=== PATIENT | female | born 1935 | race Caucasian/White ===

== ENCOUNTER 2024-05-18 16:06 | Inpatient (IN) | payer MEDICARE, SELFPAY ==
--- NOTE | ~2024-05-18 | CT_ITS ---
CT cervical spine wo con Ordering provider: Bing Rhodes History: . fall . Comparison: None. Technique: CT of the cervical spine was performed without contrast. Sagittal and coronal reformatted images were also obtained and reviewed. Automated exposure control and iterative reconstruction anson hnique were employed. The dose-length product was 106.13 mGy-cm. FINDINGS: VERTEBRAE: No subluxation or acute fracture. The occipital condyles are intact. DISC SPACES: Narrowing of the disc C6-C7. Multilevel facet joint disease. Multilevel uncovertebral maricel int osteoarthritic changes. PARASPINOUS SOFT TISSUES: Normal. IMPRESSION: No acute osseous abnormality cervical spine. Reviewed, dictated and finalized at location A.
--- NOTE | ~2024-05-18 | XR_ITS ---
SINGLE AP VIEW PELVIS Ordering provider: Bing Rhodes History: . fall . Comparison: None. FINDINGS: BONES: No acute fracture or dislocation. Right subtrochanteric fracture fixation by julian and screws. Formation seen in the area of the right femoral neck HIP JOINT SPACES: Normal. SACROILIAC JOINT SPACES/LUMBAR SPINE: The sacroiliac joint spaces are normal. Mild degenerative anderson es of the visualized lower lumbar spine. PUBIC SYMPHYSIS: Normal. SOFT TISSUES: Normal. IMPRESSION: No acute osseous abnormality pelvis. Fixation of the right femoral neck and upper femur. Reviewed, dictated and finalized at location A. IMPRESSION: No acute osseous abnormality pelvis. Fixation of the right femoral neck and upp er femur.
--- NOTE | ~2024-05-18 | CT_ITS ---
Noncontrast CT scan of the thoracolumbar spine CLINICAL HISTORY: Pain, status post fall TECHNIQUE: Axial noncontrast imaging of the thoracolumbar spine was performed. Sagittal and coronal r eformatted images were constructed. Dose reduction technique was used on this scan by utilizing autom ated exposure control and iterative reconstruction technique. The dose-length product (DLP) was 498.2 6 mGy-cm. FINDINGS: There is no fracture or subluxation of thoracic or lumbar spine pharyngeal bodies maintain normal height and alignment. There are scattered mild to moderate degenerative disc changes in the th oracic and lumbar spine, with moderate degenerative disc narrowing most notably at L2-L3 in the lumba r spine and T7-T8 in the thoracic spine. No significant disc bulge or herniation seen at any thoracic level. No thoracic spinal canal stenosis or cord compression. Thoracic neural foramina appear well preserved. At L1-L2, there is mild disc bulge and mild facet arthropathy. No central canal stenosis. There is mo derate right neural foraminal narrowing and minimal left neural foraminal narrowing. At L2-L3, there is uwdj-nh-pbjwoknr disc bulge with moderate facet arthropathy. There is moderate to advanced central canal stenosis/thecal sac compression. There is severe bilateral neural foraminal na rrowing, right worse than left. At L3-L4, there is disc bulge and facet arthropathy, with moderate to severe spinal canal stenosis/th ecal sac compression. There is severe bilateral neural foraminal compromise. At L4-L5, there is disc bulge and severe facet arthropathy, severe spinal canal stenosis/thecal sac c ompression. There is severe bilateral neural foraminal compromise. At L5-S1, there is minimal disc bulge. No definite canal stenosis. There is moderate to advanced righ t neural foraminal narrowing, and moderate left neural foraminal narrowing. Paravertebral soft tissues are unremarkable. Impression: No acute abnormality. 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 Reviewed, dictated and finalized at [facility]. Impression: No acute abnormality. 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
--- NOTE | ~2024-05-18 | CT_ITS ---
CT brain wo con Ordering provider: Bing Rhodes History: 88 years Female with . AMS . Comparison: None. Technique: CT of the head without contrast. Radiation reduction technique utilized The dose-length product was 681 mGy-cm. FINDINGS: BRAIN PARENCHYMA AND CSF SPACES: Mild leukoaraiosis and diffuse cortical atrophy. Mild atheromatous d isease. No midline shift, mass effect or hemorrhage. The brain parenchyma and CSF spaces are otherwi se normal. VISUALIZED PARANASAL SINUSES: Well aerated. MASTOIDS: Well aerated. BONES: The bones appear intact. SOFT TISSUES: Visualized nasopharynx is normal. Superficial soft tissues are normal. IMPRESSION: No acute intracranial findings. Reviewed, dictated and finalized at location A.
--- NOTE | ~2024-05-18 | MR_ITS ---
EXAMINATION: MR brain/brain stem wo/w con DATE: 05/19/2024 09:48 INDICATION: Altered mental status. TECHNIQUE: Magnetic resonance imaging (MRI) of the brain and brainstem was performed without and with 8 mL MultiHance intravenous contrast. COMPARISON: Head CT 05/18/2024 FINDINGS: There are scattered areas of nonspecific increased T2-weighted signal intensity in the cere bral white matter, which is within normal limits for the patient's age. There is no intracranial hemo rrhage, acute infarction, or abnormal intracranial mass lesion. The ventricles are normal in size. Th e mastoid air cells are normal. There are likely changes of ocular lens replacement surgeries. There is mild mucosal thickening in the ethmoid sinuses. IMPRESSION: 1. Normal aging brain. Reviewed, dictated and finalized at location A. IMPRESSION: 1. Normal aging brain.
--- NOTE | ~2024-05-18 | XR_ITS ---
XR chest 2V Ordering provider: Bing Rhodes History: 88 years Female with . fall . Comparison: None. FINDINGS: MEDIASTINUM: The cardiac silhouette is not enlarged. LUNGS: No infiltrates, effusions or pneumothorax. Emphysematous changes of the lungs. OTHER: No free air under the diaphragm. IMPRESSION: No acute cardiopulmonary pathology. Reviewed, dictated and finalized at location A.
[2024-05-18 16:08] VITALS: BP 125/51; PULSE 97; RESP 16; TEMP 37; O2SAT 97
--- NOTE | 2024-05-18 17:56 | ED.AMS ---
HPI - Altered Mental Status General Chief Complaint: Altered Mental Status <Bing Rhodes PA-C - Last Filed: 05/21/24 17:27> Stated Complaint: altered mental status <Bing Rhodes PA-C - Last Filed: 05/21/24 17:27> Time Seen by Provider: 05/18/24 17:56 <iBng Rhodes PA-C - Last Filed: 05/21/24 17:27> Focused HPI: This is a 88 year old female that presents to the ER for altered mental status. Family member brought her in out of concern as she was saying she thought there was water all over the floor and red coming out of the ceiling. She currently believes she is here to get glasses. Does not think she is confused. Has no current complaints. Family believes she may have fallen a couple days ago. Family reports she is normally very sharp . GENERAL: Elderly, well-nourished, and in no acute distress. HEAD: Normocephalic, atraumatic. CHEST: Clear to auscultation. ?No respiratory distress. HEART: Regular rate and rhythm.? NEURO: ?Alert and oriented x1. Patient screened in triage and initial orders placed.? ?Additional care and disposition to be based upon?diagnostic testing and treatment. <Bing Rhodes PA-C - Last Filed: 05/21/24 17:27> History of Present Illness HPI narrative: patient is a 88-year-old female who presents emergency department with chief complaint of altered mental status. Family noted that for the last several days she has been more more confused reports she is listing to the right and has had several falls recently patient has been confused seeing things and reports that she is not acting her usual self. The patient did have a hip fracture several months ago that was repaired and is a fairly recent resident to the facility <Vick Castellano MD - Last Filed: 05/19/24 02:42> Related Data Home Medications: Home Medications Medication Instructions Recorded Confirmed Adults Multivitamin 1 tab-cap PO DAILY 05/19/24 05/19/24 coenzyme Q10 100 mg capsule 100 mg PO DAILY 05/19/24 05/19/24 guar gum 1 packet PO DAILY PRN costipation 05/19/24 05/19/24 metformin 500 mg tablet 500 mg PO BID 05/19/24 05/19/24 raloxifene 60 mg tablet (Evista) 60 mg PO DAILY 05/19/24 05/19/24 sodium chloride 1,000 mg soluble 1,000 mg PO DAILY 05/19/24 05/19/24 tablet ferrous sulfate 325 mg (65 mg 325 mg PO DAILY 05/20/24 05/20/24 iron) tablet (Iron (ferrous sulfate)) <Bing Rhodes PA-C - Last Filed: 05/21/24 17:27> Allergies/Adverse Reactions: Allergies Allergy/AdvReac Type Severity Reaction Status Date / Time codeine Allergy Unknown Unknown Verified 05/18/24 16:17 Penicillins Allergy Unknown Unknown Verified 05/18/24 16:17 Sulfa (Sulfonamide Allergy Unknown Unknown Verified 05/18/24 16:17 Antibiotics) <Bing Rhodes PA-C - Last Filed: 05/21/24 17:27> Review of Systems Review of Systems: A 10 system review of systems was completed on the patient and is negative except for what is stated in the HPI. Nursing and ancillary documentation was reviewed. <Vick Castellano MD - Last Filed: 05/19/24 02:42> [facility] Past Medical History Medical History: Medical History (Updated 05/21/24 @ 17:27 by Bing Rhodes PA-C) Frequent urination Hyperlipidemia Hyponatremia Neurogenic bladder Pain Type 2 diabetes mellitus without complications <Bing Rhodes PA-C - Last Filed: 05/21/24 17:27> Family History Family History: Family History Father Malignant neoplasm of prostate Mother Family history of malignant neoplasm of urinary bladder Other Diabetes mellitus <Bing Rhodes PA-C - Last Filed: 05/21/24 17:27> Social History Social History: Social History Smoking status: Never smoker Alcohol intake: current Drinks per week: 1 Substance use: never Living arrangements: with family Occupation/Educat
[2024-05-18 18:04] LABS: Basophils Percent Auto 0.3 % (0.2-1.2); Hemoglobin 12.9 g/dL (12.0-15.0); Immature Granulocyte Absolute 0.05 K/mm3 (0.00-0.031); Immature Granulocyte Percent A 0.4 % (0-0.5); Lymphocytes Absolute Auto 0.98 K/mm3 (0.9-3.2); Lymphocytes Percent Auto 8.7 % (18.3-44.2); Mean Corpuscular HGB Conc 34.9 g/dl (32-36); Mean Corpuscular Hemoglobin 31.5 pg (26-34); Mean Corpuscular Volume 90.5 fl (80-100); Mean Platelet Volume 9.3 fl (7.4-10.4); Monocytes Absolute Auto 1.1 K/mm3 (0.1-0.6); Monocytes Percent Auto 9.8 % (2.6-8.5); Neutrophils Absolute Auto 9.1 K/mm3 (1.3-6.7); Neutrophils Percent Auto 80.8 % (45.5-73.1); Platelet Count Result 294 k/mm3 (150-375); Red Blood Count 4.09 M/mm3 (4.2-5.4); Red Cell Distribution Width 13.1 % (11.5-14.5); White Blood Count 11.3 K/mm3 (4.5-10.0)
[2024-05-18 18:14] LABS: Alanine Aminotransferase 42 U/L (6-35); Albumin Level 4.5 g/dL (3.5-5.1); Alkaline Phosphatase 113 U/L (38-126); Anion Gap 12 mmol/L (4-12); Aspartate Amino Transferase 93 U/L (14-36); Bilirubin,Total 0.8 mg/dL (0.2-1.3); Blood Urea Nitrogen 20 mg/dL (7-17); Calcium 9.2 mg/dL (8.4-10.2); Carbon Dioxide 23 mmol/L (22-30); Chloride 93 mmol/L (98-107); Estimated CRCL calculation 42 ml/min; Estimated Glomerular Filt Rate > 60; Glucose 132 mg/dL (65-110); Potassium 4.1 mmol/L (3.4-5.0); Sodium 128 mmol/L (137-145)
[2024-05-18 18:15] LABS: Partial Thromboplastin Time 24.4 Seconds (22.3-36.8); Prothrombin Time 14.1 Seconds (11.1-14.7)
[2024-05-19] VITALS (9 sets, daily range): BP systolic 108–133; BP diastolic 52–65; PULSE 65–99; RESP 15–20; TEMP 36.6–36.8; O2SAT 96–100; BMI 16.9
--- NOTE | 2024-05-19 01:44 | ECG_ITS ---
Test Date: 2024-05-19 01:44:51 Measurements Intervals [place] Rate: 74 P: 60 WA: 172 QRS: 38 QRSD: 72 T: 67 QT: 405 QTc: 451 Interpretive Statements SINUS RHYTHM NORMAL ECG No previous ECG available for comparison Electronically Signed On 05-19-2024 08:25:58 CDT by Jovanny Chacon D.O.
[2024-05-19 01:46] LABS: Add Urine Microscopic? YES; Appearance Urine Cloudy (Clear); Bacteria Urine 4+ /hpf; Bilirubin Urine Negative (Negative); Blood Urine Negative (Negative); Color Urine Dark Yellow (Yellow); Glucose Urine UA Negative (Negative); Ketones Urine Trace mg/dL (Negative); Leukocyte Esterase Ur 1+ LEU/UL (Negative); Nitrate Urine Negative (Negative); Non Pathogenic Casts 0-2; Protein Urine Trace mg/dL (Negative); RBC Urine 0-2 /hpf (0-2); Squamous Epithelial Cell Urine Occasional /hpf (Few); pH Urine 5.5 (5.0-9.0)
[2024-05-19 01:56] LABS: Amphetamine Screen Urine Negative (Negative); Barbiturate Screen Urine Negative (Negative); Benzodiazepines Screen Urine Negative (Negative); Cannabinoid Screen Urine Negative (Negative); Cocaine Screen Urine Negative (Negative); Methadone Screen Urine Negative (Negative); Opiate Screen Urine Negative (Negative); Phencyclidine Screen Urine Negative (Negative)
--- NOTE | 2024-05-19 03:47 | PC.NURSE ---
Hal [phone] contact son for any updates.
--- NOTE | 2024-05-19 03:50 | ADMGEN ---
This patient, Mi English, was admitted to Medical Room 343-01. Patient/family oriented to hospital policies and general routines including ID bracelet, bed and alarms, visiting hours, pain management, procedures, bathroom and other care routines, personal items, smoking policy, room service/diet, and visiting hours. Information on how to activate the Rapid Response Team has been discussed. Patient/Family are encouraged to report perceived risks to care and to ask questions if they do not understand what they are told or what they should do.
[2024-05-19] MEDS: SODIUM CHLORIDE 0.9% IV 1,000 ML 100 ML IV CONT (04:36)
[2024-05-19 09:21] LABS: Glucose Point of Care 104 mg/dl (65-105)
--- NOTE | 2024-05-19 12:28 | PM.IMHP ---
H&P: HPI History of Present Illness Date/Time: 05/19/24 12:28 Chief Complaint: AMS Narrative: This is an 88-year-old female with a significant past medical history of neurogenic bladder, hypertension hyperlipidemia, Hyponatremia, type 2 diabetes mellitus, who presents to the hospital for evaluation of altered mental status. Patient is not a good historian and most of the history of presenting illness was obtained from the EMR. According to the EMR family members brought her in out of concerns that she was hallucinating. Family reports that she is normally very sharp and alert oriented x3. They also report that she sustained a fall a few days ago however has not been worked up. Workup in the hospital included a head CT which was negative. Chest x-ray was negative. Pelvis x-ray was negative for any acute osseous abnormality, fixation of the right femoral neck and upper femur. Cervical spine CT was negative for any acute osseous abnormality. 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 Brain MRI was obtained and was negative, showed normal aging brain. Initial labs showed a white blood cell count of 11.3, sodium 128, chloride 93, blood sugar 104-132, AST 93, ALT 42. UA was obtained and showed cloudy urine appearance, trace ketones, 1+ leukocyte, 6-10 urine WBC, 4+ urine bacteria. Urine drug screen was negative. Urine culture was obtained and is pending. EKG showing normal sinus rhythm with a rate of 74, QTC 451. Patient was started on Rocephin and IV fluids while in the ED. Review of Systems Review of Systems: ROS unobtainable: Yes unobtainable due to mental status PMFSH Past Medical History Medical History (Updated 05/19/24 @ 15:58 by Beatriz Mancini APRN) Frequent urination Hyperlipidemia Hyponatremia Neurogenic bladder Pain Type 2 diabetes mellitus without complications Family History Family History Father Malignant neoplasm of prostate Mother Family history of malignant neoplasm of urinary bladder Other Diabetes mellitus Social History Social History Smoking status: Never smoker Alcohol intake: current Drinks per week: 1 Substance use: never Living arrangements: with family Occupation/Education: retired Spiritual care concerns: No Meds Home Medications and Allergies Home Medications Medication Instructions Recorded Confirmed Type lovastatin 20 mg tablet 20 mg PO DAILY #90 tabs 04/09/23 05/19/24 Rx blood sugar diagnostic (Contour #100 strips 09/20/23 05/19/24 Rx Next Test Strips) Adults Multivitamin 1 tab-cap PO DAILY 05/19/24 05/19/24 History coenzyme Q10 100 mg capsule 100 mg PO DAILY 05/19/24 05/19/24 History guar gum 1 packet PO DAILY PRN costipation 05/19/24 05/19/24 History metformin 500 mg tablet 500 mg PO BID 05/19/24 05/19/24 History raloxifene 60 mg tablet (Evista) 60 mg PO DAILY 05/19/24 05/19/24 History sodium chloride 1,000 mg soluble 1,000 mg PO DAILY 05/19/24 05/19/24 History tablet Allergies Allergy/AdvReac Type Severity Reaction Status Date / Time codeine Allergy Unknown Unknown Verified 05/18/24 16:17 Penicillins Allergy Unknown Unknown Verified 05/18/24 16:17 Sulfa (Sulfonamide Allergy Unknown Unknown Verified 05/18/24 16:17 Antibiotics) Vital Signs Vital Signs - 24 hr 05/18/24 16:08 05/19/24 03:08 05/19/24 04:00 Temperature 98.6 F Pulse Rate 97 73 80 Respiratory Rate 16 15 Blood Pressure 125/51 L 108/52 L Pulse Oximetry 97 97 Oxygen Delivery Room Air 05/19/24 04:51 05/19/24 06:00 05/19/24 08:00 Temperature 98.2 F Pulse Rate 65 65 Respiratory Rate 18 18 Blood Pressure 132/52 L Pulse Oximetry 98 98 Oxygen Delivery Room Air Room Air Exam Narrative: General: In no acute distress, well nourished Head: atraumatic, no
[2024-05-19 12:47] LABS: Glucose Point of Care 112 mg/dl (65-105)
[2024-05-19 17:34] LABS: Glucose Point of Care 127 mg/dl (65-105)
[2024-05-19 19:00] LABS: Sodium Urine Random 26 meq/L
[2024-05-19] MEDS: INSULIN ASPART (*BKC) 100 UNITS/ML SUB-Q (20:11)
[2024-05-19] MEDS: ACETAMINOPHEN 325 MG TABLET 650 MG PO (20:19)
[2024-05-19 20:35] LABS: Glucose Point of Care 201 mg/dl (65-105)
[2024-05-20] VITALS (9 sets, daily range): BP systolic 120–154; BP diastolic 65–76; PULSE 71–94; RESP 16–22; TEMP 36.5–37.1; O2SAT 95–99
[2024-05-20 05:48] LABS: Basophils Absolute Auto 0.1 K/mm3 (0.0-0.1); Basophils Percent Auto 0.6 % (0.2-1.2); Eosinophils Absolute Auto 0.2 K/mm3 (0-0.3); Eosinophils Percent Auto 2.4 % (0-4.4); Hemoglobin 12.2 g/dL (12.0-15.0); Immature Granulocyte Absolute 0.02 K/mm3 (0.00-0.031); Immature Granulocyte Percent A 0.2 % (0-0.5); Lymphocytes Absolute Auto 1.95 K/mm3 (0.9-3.2); Lymphocytes Percent Auto 24.2 % (18.3-44.2); Mean Corpuscular HGB Conc 33.9 g/dl (32-36); Mean Corpuscular Hemoglobin 31.5 pg (26-34); Mean Platelet Volume 9.4 fl (7.4-10.4); Monocytes Absolute Auto 0.8 K/mm3 (0.1-0.6); Monocytes Percent Auto 10.4 % (2.6-8.5); Neutrophils Percent Auto 62.2 % (45.5-73.1); Platelet Count Result 272 k/mm3 (150-375); Red Blood Count 3.87 M/mm3 (4.2-5.4); Red Cell Distribution Width 13.4 % (11.5-14.5); White Blood Count 8.1 K/mm3 (4.5-10.0)
[2024-05-20 05:59] LABS: Hemoglobin A1C 6.1 % (<5.7)
[2024-05-20 06:06] LABS: Alanine Aminotransferase 47 U/L (6-35); Albumin Level 3.3 g/dL (3.5-5.1); Alkaline Phosphatase 90 U/L (38-126); Anion Gap 6 mmol/L (4-12); Aspartate Amino Transferase 87 U/L (14-36); Bilirubin,Total 0.6 mg/dL (0.2-1.3); Blood Urea Nitrogen 13 mg/dL (7-17); Calcium 8.6 mg/dL (8.4-10.2); Carbon Dioxide 28 mmol/L (22-30); Chloride 95 mmol/L (98-107); Estimated CRCL calculation 46 ml/min; Estimated Glomerular Filt Rate > 60; Glucose 107 mg/dL (65-110); Potassium 3.7 mmol/L (3.4-5.0); Sodium 129 mmol/L (137-145)
[2024-05-20] MEDS: LOVASTATIN 20 MG TABLET PO (08:43)
[2024-05-20] MEDS: SODIUM CHLORIDE 1 GM TABLET PO (08:43)
[2024-05-20] MEDS: RALOXIFENE HCL (*CHEMO) 60 MG TABLET PO (08:43)
[2024-05-20 08:45] LABS: Glucose Point of Care 111 mg/dl (65-105)
--- NOTE | 2024-05-20 08:48 | P.PNIM_ITS ---
Progress Note: A&P Assessment and Plan (1) Acute UTI: Code(s): N39.0 - Urinary tract infection, site not specified Status: Acute Assessment and Plan: 05/19/24: * UA showing cloudy appearance, trace urine ketones, 1+ leukocyte, 6-10 urine WBC, 4+ urine bacteria * Rocephin started * Urine culture pending 05/20/24: * Urine culture still pending * Continue Rocephin (2) Hyponatremia: Code(s): E87.1 - Hypo-osmolality and hyponatremia Status: Acute Assessment and Plan: 05/19/24: * Sodium level 128 * Patient continued on salt tabs * Appears to be chronic * Will check urine osmolarity, serum osmolarity, urine sodium * Fluid restriction 1500 ml/day 05/20/24: * Sodium level 129 * Continue taking salt tabs * Continue fluid restriction * Urine osmolarity, serum osmolarity, and urine sodium are all still pending (3) Hypothyroidism, unspecified: Code(s): E03.9 - Hypothyroidism, unspecified Status: Acute Assessment and Plan: 05/20/24: * TSH 9.610 * Will check T3 and free T4 (4) Transaminitis: Code(s): R74.01 - Elevation of levels of liver transaminase levels Status: Acute Assessment and Plan: 05/20/24: * Slightly elevated liver enzymes AST 87, ALT 47 * Continue to trend (5) Altered mental status: Code(s): R41.82 - Altered mental status, unspecified Status: Acute Assessment and Plan: 05/19/24: * Likely secondary to UTI versus hyponatremia which is chronic * Continue neuro checks 05/20/24: * Currently alert oriented x3 * Continue neuro checks (6) Weakness: Code(s): R53.1 - Weakness Status: Acute Assessment and Plan: 05/19/24: * PT and OT ordered 05/20/24: * Continue PT and OT (7) Severe protein-calorie malnutrition: Code(s): E43 - Unspecified severe protein-calorie malnutrition Status: Chronic Assessment and Plan: 05/20/24: * BMI 16.9, 43.4 kg * Continue Ensure supplements * Dietitian consulted (8) Type 2 diabetes mellitus without complications: Code(s): E11.9 - Type 2 diabetes mellitus without complications Status: Chronic Assessment and Plan: 05/19/24: * Blood sugars ranging 104-112 * Will obtain hemoglobin A1c * Accu checks AC/HS * Low-dose SSI ordered * hypoglycemic protocol in place * Diabetic diet ordered * Hold metformin 05/20/24: * Continue with current treatment plan (9) Hyperlipidemia: Code(s): E78.5 - Hyperlipidemia, unspecified Status: Chronic Assessment and Plan: 05/19/24: * Continue lovastatin 05/20/24: * Continue with current treatment plan Time Spent With Patient Time with patient: Greater than 35 minutes Subjective Date/time seen: 05/20/24 08:48 Interval history: Interval history: This is an 88-year-old female with a significant past medical history of neurogenic bladder, hypertension hyperlipidemia, Hyponatremia, type 2 diabetes mellitus, who presents to the hospital for evaluation of altered mental status. Patient is not a good historian and most of the history of presenting illness was obtained from the EMR. According to the EMR family members brought her in out of concerns that she was hallucinating. Family reports that she is normally very sharp and alert oriented x3. They also report that she sustained a fall a few days ago however has not been worked up. Workup in the hospital included a head CT which was negative. Chest x-ray was negative.
--- NOTE | 2024-05-20 08:48 | PM.IMPN ---
Progress Note: A&P Assessment and Plan (1) Acute UTI: Code(s): N39.0 - Urinary tract infection, site not specified Status: Acute Assessment and Plan: 05/19/24: UA showing cloudy appearance, trace urine ketones, 1+ leukocyte, 6-10 urine WBC, 4+ urine bacteria Rocephin started Urine culture pending 05/20/24: Urine culture still pending Continue Rocephin (2) Hyponatremia: Code(s): E87.1 - Hypo-osmolality and hyponatremia Status: Acute Assessment and Plan: 05/19/24: Sodium level 128 Patient continued on salt tabs Appears to be chronic Will check urine osmolarity, serum osmolarity, urine sodium Fluid restriction 1500 ml/day 05/20/24: Sodium level 129 Continue taking salt tabs Continue fluid restriction Urine osmolarity, serum osmolarity, and urine sodium are all still pending (3) Hypothyroidism, unspecified: Code(s): E03.9 - Hypothyroidism, unspecified Status: Acute Assessment and Plan: 05/20/24: TSH 9.610 Will check T3 and free T4 (4) Transaminitis: Code(s): R74.01 - Elevation of levels of liver transaminase levels Status: Acute Assessment and Plan: 05/20/24: Slightly elevated liver enzymes AST 87, ALT 47 Continue to trend (5) Altered mental status: Code(s): R41.82 - Altered mental status, unspecified Status: Acute Assessment and Plan: 05/19/24: Likely secondary to UTI versus hyponatremia which is chronic Continue neuro checks 05/20/24: Currently alert oriented x3 Continue neuro checks (6) Weakness: Code(s): R53.1 - Weakness Status: Acute Assessment and Plan: 05/19/24: PT and OT ordered 05/20/24: Continue PT and OT (7) Severe protein-calorie malnutrition: Code(s): E43 - Unspecified severe protein-calorie malnutrition Status: Chronic Assessment and Plan: 05/20/24: BMI 16.9, 43.4 kg Continue Ensure supplements Dietitian consulted (8) Type 2 diabetes mellitus without complications: Code(s): E11.9 - Type 2 diabetes mellitus without complications Status: Chronic Assessment and Plan: 05/19/24: Blood sugars ranging 104-112 Will obtain hemoglobin A1c Accu checks AC/HS Low-dose SSI ordered hypoglycemic protocol in place Diabetic diet ordered Hold metformin 05/20/24: Continue with current treatment plan (9) Hyperlipidemia: Code(s): E78.5 - Hyperlipidemia, unspecified Status: Chronic Assessment and Plan: 05/19/24: Continue lovastatin 05/20/24: Continue with current treatment plan Time Spent With Patient Time with patient: Greater than 35 minutes Subjective Date/time seen: 05/20/24 08:48 Interval history: Interval history: This is an 88-year-old female with a significant past medical history of neurogenic bladder, hypertension hyperlipidemia, Hyponatremia, type 2 diabetes mellitus, who presents to the hospital for evaluation of altered mental status. Patient is not a good historian and most of the history of presenting illness was obtained from the EMR. According to the EMR family members brought her in out of concerns that she was hallucinating. Family reports that she is normally very sharp and alert oriented x3. They also report that she sustained a fall a few days ago however has not been worked up. Workup in the hospital included a head CT which was negative. Chest x-ray was negative. Pelvis x-ray was negative for any acute osseous abnormality, fixation of the right femoral neck and upper femur. Cervical spine CT was negative for any acute osseous abnormality. 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 Brain MRI was obtained and was negative, showed normal aging brain. Initial labs showed a white blood cell count of 11.3, sodium 128, chloride 93, blood sugar 104-132, AST 93, ALT 42. UA was obtained and showed clou
[2024-05-20] MEDS: FERROUS SULFATE 325 MG TABLET DR PO (09:58)
[2024-05-20] MEDS: polyethylene glycoL 3350 17 GM POWD.PACK PO (09:58)
[2024-05-20] MEDS: MULTIVITAMINS /C LUTEIN (CENTRUM SILVER) TABLET *BKC 1 TAB PO (09:58)
[2024-05-20 10:38] LABS: Free T4 Free Thyroxine 1.12 ng/mL (0.78-2.19)
[2024-05-20 11:45] LABS: Glucose Point of Care 198 mg/dl (65-105)
[2024-05-20 17:09] LABS: Glucose Point of Care 137 mg/dl (65-105)
[2024-05-20 20:21] LABS: Glucose Point of Care 159 mg/dl (65-105)
[2024-05-21] VITALS (9 sets, daily range): BP systolic 146–160; BP diastolic 62–81; PULSE 70–103; RESP 18–22; TEMP 36.4–36.8; O2SAT 97–98
[2024-05-21 05:48] LABS: Basophils Absolute Auto 0.1 K/mm3 (0.0-0.1); Basophils Percent Auto 0.7 % (0.2-1.2); Eosinophils Absolute Auto 0.2 K/mm3 (0-0.3); Eosinophils Percent Auto 2.6 % (0-4.4); Hematocrit 34.8 % (37.0-47.0); Hemoglobin 11.7 g/dL (12.0-15.0); Immature Granulocyte Absolute 0.04 K/mm3 (0.00-0.031); Immature Granulocyte Percent A 0.5 % (0-0.5); Lymphocytes Absolute Auto 1.61 K/mm3 (0.9-3.2); Lymphocytes Percent Auto 19.7 % (18.3-44.2); Mean Corpuscular HGB Conc 33.6 g/dl (32-36); Mean Corpuscular Hemoglobin 30.9 pg (26-34); Mean Corpuscular Volume 91.8 fl (80-100); Mean Platelet Volume 10.1 fl (7.4-10.4); Monocytes Absolute Auto 0.8 K/mm3 (0.1-0.6); Monocytes Percent Auto 9.4 % (2.6-8.5); Neutrophils Absolute Auto 5.5 K/mm3 (1.3-6.7); Neutrophils Percent Auto 67.1 % (45.5-73.1); Platelet Count Result 283 k/mm3 (150-375); Red Blood Count 3.79 M/mm3 (4.2-5.4); Red Cell Distribution Width 13.6 % (11.5-14.5); White Blood Count 8.2 K/mm3 (4.5-10.0)
[2024-05-21 06:04] LABS: Alanine Aminotransferase 45 U/L (6-35); Albumin Level 3.5 g/dL (3.5-5.1); Alkaline Phosphatase 87 U/L (38-126); Anion Gap 8 mmol/L (4-12); Aspartate Amino Transferase 61 U/L (14-36); Bilirubin,Total 0.4 mg/dL (0.2-1.3); Blood Urea Nitrogen 15 mg/dL (7-17); Calcium 8.8 mg/dL (8.4-10.2); Carbon Dioxide 27 mmol/L (22-30); Chloride 94 mmol/L (98-107); Estimated CRCL calculation 46 ml/min; Estimated Glomerular Filt Rate > 60; Glucose 111 mg/dL (65-110); Sodium 129 mmol/L (137-145)
[2024-05-21] MEDS: FERROUS SULFATE 325 MG TABLET DR PO (08:57)
[2024-05-21] MEDS: SODIUM CHLORIDE 1 GM TABLET PO (08:58)
[2024-05-21] MEDS: LOVASTATIN 20 MG TABLET PO (08:58)
[2024-05-21] MEDS: MULTIVITAMINS /C LUTEIN (CENTRUM SILVER) TABLET *BKC 1 TAB PO (08:58)
[2024-05-21] MEDS: polyethylene glycoL 3350 17 GM POWD.PACK PO (08:58)
[2024-05-21] MEDS: RALOXIFENE HCL (*CHEMO) 60 MG TABLET PO (08:58)
[2024-05-21 09:01] LABS: Glucose Point of Care 102 mg/dl (65-105)
[2024-05-21 12:09] LABS: Glucose Point of Care 193 mg/dl (65-105)
--- NOTE | 2024-05-21 15:30 | P.PNIM_ITS ---
Progress Note: A&P Assessment and Plan (1) Acute UTI: Code(s): N39.0 - Urinary tract infection, site not specified Status: Acute Assessment and Plan: 05/19/24: * UA showing cloudy appearance, trace urine ketones, 1+ leukocyte, 6-10 urine WBC, 4+ urine bacteria * Rocephin started * Urine culture pending 05/21/24: * Urine culture showing E coli * will start on p.o. Macrobid as she has sulfa and penicillin allergy (2) Hyponatremia: Code(s): E87.1 - Hypo-osmolality and hyponatremia Status: Acute Assessment and Plan: 05/19/24: * Sodium level 128 * Patient continued on salt tabs * Appears to be chronic * Will check urine osmolarity, serum osmolarity, urine sodium * Fluid restriction 1500 ml/day 05/21/24: * Sodium level still 129 * Continue taking salt tabs * Continue fluid restriction at 1500 ml * Urine osmolarity, serum osmolarity, and urine sodium are all still pending * consider Nephrology consult (3) Hypothyroidism, unspecified: Code(s): E03.9 - Hypothyroidism, unspecified Status: Acute Assessment and Plan: 05/21/24: * TSH 9.610 * T3 pending * free T4 1.12 (4) Transaminitis: Code(s): R74.01 - Elevation of levels of liver transaminase levels Status: Acute Assessment and Plan: 05/21/24: * Slightly elevated liver enzymes trending down * AST 61, ALT 45 * Continue to trend (5) Altered mental status: Code(s): R41.82 - Altered mental status, unspecified Status: Acute Assessment and Plan: 05/19/24: * Likely secondary to UTI versus hyponatremia which is chronic * Continue neuro checks 05/21/24: * Currently alert oriented x3 * Continue neuro checks (6) Weakness: Code(s): R53.1 - Weakness Status: Acute Assessment and Plan: 05/19/24: * PT and OT ordered 05/21/24: * Continue PT and OT (7) Severe protein-calorie malnutrition: Code(s): E43 - Unspecified severe protein-calorie malnutrition Status: Chronic Assessment and Plan: 05/21/24: * BMI 16.9, 43.4 kg * Continue Ensure supplements * Dietitian consulted (8) Type 2 diabetes mellitus without complications: Code(s): E11.9 - Type 2 diabetes mellitus without complications Status: Chronic Assessment and Plan: 05/19/24: * Blood sugars ranging 104-112 * Will obtain hemoglobin A1c * Accu checks AC/HS * Low-dose SSI ordered * hypoglycemic protocol in place * Diabetic diet ordered * Hold metformin 05/21/24: * Continue with current treatment plan (9) Hyperlipidemia: Code(s): E78.5 - Hyperlipidemia, unspecified Status: Chronic Assessment and Plan: 05/19/24: * Continue lovastatin 05/21/24: * Continue with current treatment plan Subjective Date/time seen: 05/21/24 15:30 Interval history: Patient is pleasant elderly woman lying in bed with no complaints. She is alert and oriented x3, able to answer questions appropriately but does repeat herself frequently. urine culture positive for E coli, stopped Rocephin and started on Macrobid p.o. urine testing still pending, sodium remains at 129. Exam Narrative: General: In no acute distress, malnourished Cardiac: RRR, No murmur, gallops or friction rubs, peripheral pulses intact. Respiratory: Lungs clear to auscultation Gastrointestinal: soft, non-distended, non-tender, normoactive bowel sounds. : voiding without difficulty. Neuro: Al
--- NOTE | 2024-05-21 15:30 | PM.IMPN ---
Progress Note: A&P Assessment and Plan (1) Acute UTI: Code(s): N39.0 - Urinary tract infection, site not specified Status: Acute Assessment and Plan: 05/19/24: UA showing cloudy appearance, trace urine ketones, 1+ leukocyte, 6-10 urine WBC, 4+ urine bacteria Rocephin started Urine culture pending 05/21/24: Urine culture showing E coli will start on p.o. Macrobid as she has sulfa and penicillin allergy (2) Hyponatremia: Code(s): E87.1 - Hypo-osmolality and hyponatremia Status: Acute Assessment and Plan: 05/19/24: Sodium level 128 Patient continued on salt tabs Appears to be chronic Will check urine osmolarity, serum osmolarity, urine sodium Fluid restriction 1500 ml/day 05/21/24: Sodium level still 129 Continue taking salt tabs Continue fluid restriction at 1500 ml Urine osmolarity, serum osmolarity, and urine sodium are all still pending consider Nephrology consult (3) Hypothyroidism, unspecified: Code(s): E03.9 - Hypothyroidism, unspecified Status: Acute Assessment and Plan: 05/21/24: TSH 9.610 T3 pending free T4 1.12 (4) Transaminitis: Code(s): R74.01 - Elevation of levels of liver transaminase levels Status: Acute Assessment and Plan: 05/21/24: Slightly elevated liver enzymes trending down AST 61, ALT 45 Continue to trend (5) Altered mental status: Code(s): R41.82 - Altered mental status, unspecified Status: Acute Assessment and Plan: 05/19/24: Likely secondary to UTI versus hyponatremia which is chronic Continue neuro checks 05/21/24: Currently alert oriented x3 Continue neuro checks (6) Weakness: Code(s): R53.1 - Weakness Status: Acute Assessment and Plan: 05/19/24: PT and OT ordered 05/21/24: Continue PT and OT (7) Severe protein-calorie malnutrition: Code(s): E43 - Unspecified severe protein-calorie malnutrition Status: Chronic Assessment and Plan: 05/21/24: BMI 16.9, 43.4 kg Continue Ensure supplements Dietitian consulted (8) Type 2 diabetes mellitus without complications: Code(s): E11.9 - Type 2 diabetes mellitus without complications Status: Chronic Assessment and Plan: 05/19/24: Blood sugars ranging 104-112 Will obtain hemoglobin A1c Accu checks AC/HS Low-dose SSI ordered hypoglycemic protocol in place Diabetic diet ordered Hold metformin 05/21/24: Continue with current treatment plan (9) Hyperlipidemia: Code(s): E78.5 - Hyperlipidemia, unspecified Status: Chronic Assessment and Plan: 05/19/24: Continue lovastatin 05/21/24: Continue with current treatment plan Subjective Date/time seen: 05/21/24 15:30 Interval history: Patient is pleasant elderly woman lying in bed with no complaints. She is alert and oriented x3, able to answer questions appropriately but does repeat herself frequently. urine culture positive for E coli, stopped Rocephin and started on Macrobid p.o. urine testing still pending, sodium remains at 129. Exam Narrative: General: In no acute distress, malnourished Cardiac: RRR, No murmur, gallops or friction rubs, peripheral pulses intact. Respiratory: Lungs clear to auscultation Gastrointestinal: soft, non-distended, non-tender, normoactive bowel sounds. : voiding without difficulty. Neuro: Alert and oriented x3, no focal deficits. MUSC: ROM normal, no edema. psych: pleasant and cooperative, mood appropriate. Objective Data Vital Signs Vital Signs: Vital Signs - 24 hr 05/20/24 16:00 05/20/24 21:48 05/20/24 20:00 Temperature 98.8 F Pulse Rate 79 92 92 Respiratory Rate 22 H Blood Pressure 154/76 H Pulse Oximetry 96 Oxygen Delivery 05/20/24 20:00 05/21/24 05:50 05/21/24 00:00 Temperature 97.5 F L Pulse Rate 78 94 Respiratory Rate 18 Blood Pressure 153/74 H Pulse Oximetry 97 Oxygen Deliver
[2024-05-21 17:06] LABS: Glucose Point of Care 110 mg/dl (65-105)
[2024-05-21] MEDS: NITROFURANTOIN MONOHYD MACROCR 100 MG CAP PO (20:27)
[2024-05-22] VITALS (9 sets, daily range): BP systolic 128–152; BP diastolic 58–74; PULSE 72–92; RESP 16–20; TEMP 36.4–36.7; O2SAT 98–100
[2024-05-22 05:41] LABS: Basophils Absolute Auto 0.1 K/mm3 (0.0-0.1); Basophils Percent Auto 0.9 % (0.2-1.2); Eosinophils Absolute Auto 0.3 K/mm3 (0-0.3); Eosinophils Percent Auto 3.3 % (0-4.4); Hematocrit 35.5 % (37.0-47.0); Immature Granulocyte Absolute 0.03 K/mm3 (0.00-0.031); Immature Granulocyte Percent A 0.4 % (0-0.5); Lymphocytes Absolute Auto 1.78 K/mm3 (0.9-3.2); Lymphocytes Percent Auto 23.5 % (18.3-44.2); Mean Corpuscular HGB Conc 33.8 g/dl (32-36); Mean Corpuscular Hemoglobin 31.1 pg (26-34); Mean Platelet Volume 10.3 fl (7.4-10.4); Monocytes Absolute Auto 0.8 K/mm3 (0.1-0.6); Monocytes Percent Auto 10.4 % (2.6-8.5); Neutrophils Absolute Auto 4.7 K/mm3 (1.3-6.7); Neutrophils Percent Auto 61.5 % (45.5-73.1); Platelet Count Result 297 k/mm3 (150-375); Red Blood Count 3.86 M/mm3 (4.2-5.4); Red Cell Distribution Width 13.5 % (11.5-14.5); White Blood Count 7.6 K/mm3 (4.5-10.0)
[2024-05-22 05:54] LABS: Alanine Aminotransferase 41 U/L (6-35); Albumin Level 3.6 g/dL (3.5-5.1); Alkaline Phosphatase 89 U/L (38-126); Anion Gap 9 mmol/L (4-12); Aspartate Amino Transferase 46 U/L (14-36); Bilirubin,Total 0.5 mg/dL (0.2-1.3); Blood Urea Nitrogen 13 mg/dL (7-17); Calcium 8.9 mg/dL (8.4-10.2); Carbon Dioxide 27 mmol/L (22-30); Chloride 93 mmol/L (98-107); Estimated CRCL calculation 56 ml/min; Estimated Glomerular Filt Rate > 60; Glucose 114 mg/dL (65-110); Sodium 129 mmol/L (137-145)
[2024-05-22 06:17] LABS: Glucose Point of Care 154 mg/dl (65-105)
[2024-05-22 08:33] LABS: Glucose Point of Care 153 mg/dl (65-105)
[2024-05-22] MEDS: polyethylene glycoL 3350 17 GM POWD.PACK PO (08:58)
[2024-05-22] MEDS: NITROFURANTOIN MONOHYD MACROCR 100 MG CAP PO ×2 (08:58→20:15)
[2024-05-22] MEDS: LOVASTATIN 20 MG TABLET PO (08:58)
[2024-05-22] MEDS: FERROUS SULFATE 325 MG TABLET DR PO (08:58)
[2024-05-22] MEDS: SODIUM CHLORIDE 1 GM TABLET PO (08:58)
[2024-05-22] MEDS: MULTIVITAMINS /C LUTEIN (CENTRUM SILVER) TABLET *BKC 1 TAB PO (08:58)
[2024-05-22] MEDS: RALOXIFENE HCL (*CHEMO) 60 MG TABLET PO (08:59)
--- NOTE | 2024-05-22 09:00 | P.PNIM_ITS ---
Progress Note: A&P Assessment and Plan (1) Acute UTI: Code(s): N39.0 - Urinary tract infection, site not specified Status: Acute Assessment and Plan: 05/19/24: * UA showing cloudy appearance, trace urine ketones, 1+ leukocyte, 6-10 urine WBC, 4+ urine bacteria * Rocephin started * Urine culture pending 05/21/24: * Urine culture showing E coli * will start on p.o. Macrobid as she has sulfa and penicillin allergy 05/22/24: * Continue Macrobid (2) Hyponatremia: Code(s): E87.1 - Hypo-osmolality and hyponatremia Status: Acute Assessment and Plan: 05/19/24: * Sodium level 128 * Patient continued on salt tabs * Appears to be chronic * Will check urine osmolarity, serum osmolarity, urine sodium * Fluid restriction 1500 ml/day 05/21/24: * Sodium level still 129 * Continue taking salt tabs * Continue fluid restriction at 1500 ml * Urine osmolarity, serum osmolarity, and urine sodium are all still pending * consider Nephrology consult 05/22/24: * Sodium 129 * Continue with current treatment plan (3) Hypothyroidism, unspecified: Code(s): E03.9 - Hypothyroidism, unspecified Status: Acute Assessment and Plan: 05/21/24: * TSH 9.610 * T3 pending * free T4 1.12 05/22/24: * Will need repeat in 2-3 months on outpatient basis with PCP (4) Transaminitis: Code(s): R74.01 - Elevation of levels of liver transaminase levels Status: Acute Assessment and Plan: 05/21/24: * Slightly elevated liver enzymes trending down * AST 61, ALT 45 * Continue to trend 05/22/24: * AST 46, ALT 41 (5) Altered mental status: Qualifiers: Altered mental status type: unspecified Qualified Code(s): R41.82 - Altered mental status, unspecified Code(s): R41.82 - Altered mental status, unspecified Status: Acute Assessment and Plan: 05/19/24: * Likely secondary to UTI versus hyponatremia which is chronic * Continue neuro checks 05/21/24: * Currently alert oriented x3 * Continue neuro checks 05/22/24: * Resolved (6) Weakness: Code(s): R53.1 - Weakness Status: Acute Assessment and Plan: 05/19/24: * PT and OT ordered 05/21/24: * Continue PT and OT (7) Severe protein-calorie malnutrition: Code(s): E43 - Unspecified severe protein-calorie malnutrition Status: Chronic Assessment and Plan: 05/21/24: * BMI 16.9, 43.4 kg * Continue Ensure supplements * Dietitian consulted 05/22/24: * No change to current treatment plan (8) Type 2 diabetes mellitus without complications: Code(s): E11.9 - Type 2 diabetes mellitus without complications Status: Chronic Assessment and Plan: 05/19/24: * Blood sugars ranging 104-112 * Will obtain hemoglobin A1c * Accu checks AC/HS * Low-dose SSI ordered * hypoglycemic protocol in place * Diabetic diet ordered * Hold metformin 05/21/24: * Continue with current treatment plan (9) Hyperlipidemia: Code(s): E78.5 - Hyperlipidemia, unspecified Status: Chronic Assessment and Plan: 05/19/24: * Continue lovastatin 05/21/24: * Continue with current treatment plan Time Spent With Patient Time with patient: 25 - 35 minutes Subjective Date/time seen: 05/22/24 09:00 Interval history: Interval history: This is an 88-year-old female with a significant past medical history of neurogenic bladd
--- NOTE | 2024-05-22 09:00 | PM.IMPN ---
Progress Note: A&P Assessment and Plan (1) Acute UTI: Code(s): N39.0 - Urinary tract infection, site not specified Status: Acute Assessment and Plan: 05/19/24: UA showing cloudy appearance, trace urine ketones, 1+ leukocyte, 6-10 urine WBC, 4+ urine bacteria Rocephin started Urine culture pending 05/21/24: Urine culture showing E coli will start on p.o. Macrobid as she has sulfa and penicillin allergy 05/22/24: Continue Macrobid (2) Hyponatremia: Code(s): E87.1 - Hypo-osmolality and hyponatremia Status: Acute Assessment and Plan: 05/19/24: Sodium level 128 Patient continued on salt tabs Appears to be chronic Will check urine osmolarity, serum osmolarity, urine sodium Fluid restriction 1500 ml/day 05/21/24: Sodium level still 129 Continue taking salt tabs Continue fluid restriction at 1500 ml Urine osmolarity, serum osmolarity, and urine sodium are all still pending consider Nephrology consult 05/22/24: Sodium 129 Continue with current treatment plan (3) Hypothyroidism, unspecified: Code(s): E03.9 - Hypothyroidism, unspecified Status: Acute Assessment and Plan: 05/21/24: TSH 9.610 T3 pending free T4 1.12 05/22/24: Will need repeat in 2-3 months on outpatient basis with PCP (4) Transaminitis: Code(s): R74.01 - Elevation of levels of liver transaminase levels Status: Acute Assessment and Plan: 05/21/24: Slightly elevated liver enzymes trending down AST 61, ALT 45 Continue to trend 05/22/24: AST 46, ALT 41 (5) Altered mental status: Qualifiers: Altered mental status type: unspecified Qualified Code(s): R41.82 - Altered mental status, unspecified Code(s): R41.82 - Altered mental status, unspecified Status: Acute Assessment and Plan: 05/19/24: Likely secondary to UTI versus hyponatremia which is chronic Continue neuro checks 05/21/24: Currently alert oriented x3 Continue neuro checks 05/22/24: Resolved (6) Weakness: Code(s): R53.1 - Weakness Status: Acute Assessment and Plan: 05/19/24: PT and OT ordered 05/21/24: Continue PT and OT (7) Severe protein-calorie malnutrition: Code(s): E43 - Unspecified severe protein-calorie malnutrition Status: Chronic Assessment and Plan: 05/21/24: BMI 16.9, 43.4 kg Continue Ensure supplements Dietitian consulted 05/22/24: No change to current treatment plan (8) Type 2 diabetes mellitus without complications: Code(s): E11.9 - Type 2 diabetes mellitus without complications Status: Chronic Assessment and Plan: 05/19/24: Blood sugars ranging 104-112 Will obtain hemoglobin A1c Accu checks AC/HS Low-dose SSI ordered hypoglycemic protocol in place Diabetic diet ordered Hold metformin 05/21/24: Continue with current treatment plan (9) Hyperlipidemia: Code(s): E78.5 - Hyperlipidemia, unspecified Status: Chronic Assessment and Plan: 05/19/24: Continue lovastatin 05/21/24: Continue with current treatment plan Time Spent With Patient Time with patient: 25 - 35 minutes Subjective Date/time seen: 05/22/24 09:00 Interval history: Interval history: This is an 88-year-old female with a significant past medical history of neurogenic bladder, hypertension hyperlipidemia, Hyponatremia, type 2 diabetes mellitus, who presents to the hospital for evaluation of altered mental status. Patient is not a good historian and most of the history of presenting illness was obtained from the EMR. According to the EMR family members brought her in out of concerns that she was hallucinating. Family reports that she is normally very sharp and alert oriented x3. They also report that she sustained a fall a few days ago however has not been worked up. Workup in the hospital included a head CT which was negative. Chest x-ray was negative. Pelvis x-ray wa
[2024-05-22 11:48] LABS: Glucose Point of Care 155 mg/dl (65-105)
[2024-05-22 14:38] LABS: Osmolality, Urine 200 mOsm/kg (50-1200)
[2024-05-22 16:56] LABS: Glucose Point of Care 170 mg/dl (65-105)
[2024-05-23] VITALS: PULSE 71
[2024-05-23 00:44] LABS: Glucose Point of Care 183 mg/dl (65-105)
[2024-05-23 04:00] VITALS: PULSE 81
[2024-05-23 05:16] VITALS: BP 158/73; PULSE 77; RESP 16; TEMP 36.6; O2SAT 97
[2024-05-23 05:53] LABS: Basophils Absolute Auto 0.1 K/mm3 (0.0-0.1); Basophils Percent Auto 0.8 % (0.2-1.2); Eosinophils Absolute Auto 0.2 K/mm3 (0-0.3); Eosinophils Percent Auto 3.5 % (0-4.4); Hematocrit 35.9 % (37.0-47.0); Hemoglobin 12.1 g/dL (12.0-15.0); Immature Granulocyte Absolute 0.02 K/mm3 (0.00-0.031); Immature Granulocyte Percent A 0.3 % (0-0.5); Lymphocytes Absolute Auto 1.52 K/mm3 (0.9-3.2); Lymphocytes Percent Auto 22.9 % (18.3-44.2); Mean Corpuscular HGB Conc 33.7 g/dl (32-36); Mean Corpuscular Hemoglobin 31.5 pg (26-34); Mean Corpuscular Volume 93.5 fl (80-100); Mean Platelet Volume 10.3 fl (7.4-10.4); Monocytes Absolute Auto 0.8 K/mm3 (0.1-0.6); Monocytes Percent Auto 11.7 % (2.6-8.5); Neutrophils Percent Auto 60.8 % (45.5-73.1); Platelet Count Result 300 k/mm3 (150-375); Red Blood Count 3.84 M/mm3 (4.2-5.4); Red Cell Distribution Width 13.6 % (11.5-14.5); White Blood Count 6.6 K/mm3 (4.5-10.0)
[2024-05-23 06:11] LABS: Alanine Aminotransferase 37 U/L (6-35); Albumin Level 3.8 g/dL (3.5-5.1); Alkaline Phosphatase 88 U/L (38-126); Anion Gap 8 mmol/L (4-12); Aspartate Amino Transferase 40 U/L (14-36); Bilirubin,Total 0.4 mg/dL (0.2-1.3); Blood Urea Nitrogen 18 mg/dL (7-17); Calcium 9.1 mg/dL (8.4-10.2); Carbon Dioxide 27 mmol/L (22-30); Chloride 95 mmol/L (98-107); Estimated CRCL calculation 46 ml/min; Estimated Glomerular Filt Rate > 60; Glucose 116 mg/dL (65-110); Potassium 4.3 mmol/L (3.4-5.0); Sodium 130 mmol/L (137-145)
[2024-05-23 08:55] LABS: Glucose Point of Care 121 mg/dl (65-105)
[2024-05-23] MEDS: SODIUM CHLORIDE 1 GM TABLET PO (09:00)
[2024-05-23] MEDS: MULTIVITAMINS /C LUTEIN (CENTRUM SILVER) TABLET *BKC 1 TAB PO (09:00)
[2024-05-23] MEDS: FERROUS SULFATE 325 MG TABLET DR PO (09:00)
[2024-05-23] MEDS: polyethylene glycoL 3350 17 GM POWD.PACK PO (09:00)
[2024-05-23] MEDS: LOVASTATIN 20 MG TABLET PO (09:00)
[2024-05-23] MEDS: RALOXIFENE HCL (*CHEMO) 60 MG TABLET PO (09:00)
[2024-05-23] MEDS: NITROFURANTOIN MONOHYD MACROCR 100 MG CAP PO (09:00)
--- NOTE | 2024-05-23 09:58 | PM.DS ---
DS: Admitting Diagnosis Discharge Date 05/23/24 Admitting Diagnosis Acute UTI Hyponatremia Altered mental status Weakness Type 2 diabetes mellitus Hyperlipidemia DS: Discharge Diagnosis Discharge Diagnosis (1) Acute UTI: Code(s): N39.0 - Urinary tract infection, site not specified Status: Acute (2) Hyponatremia: Code(s): E87.1 - Hypo-osmolality and hyponatremia Status: Acute (3) Hypothyroidism, unspecified: Code(s): E03.9 - Hypothyroidism, unspecified Status: Acute (4) Transaminitis: Code(s): R74.01 - Elevation of levels of liver transaminase levels Status: Acute (5) Altered mental status: Qualifiers: Altered mental status type: unspecified Qualified Code(s): R41.82 - Altered mental status, unspecified Code(s): R41.82 - Altered mental status, unspecified Status: Acute (6) Weakness: Code(s): R53.1 - Weakness Status: Acute (7) Severe protein-calorie malnutrition: Code(s): E43 - Unspecified severe protein-calorie malnutrition Status: Chronic (8) Type 2 diabetes mellitus without complications: Code(s): E11.9 - Type 2 diabetes mellitus without complications Status: Chronic (9) Hyperlipidemia: Code(s): E78.5 - Hyperlipidemia, unspecified Status: Chronic DS: Summary Hospital Course Reason for hospitalization: Acute UTI Hyponatremia Altered mental status Weakness Type 2 diabetes mellitus Hyperlipidemia Hospital Course: This is an 88-year-old female with a significant past medical history of neurogenic bladder, hypertension hyperlipidemia, Hyponatremia, type 2 diabetes mellitus, who presents to the hospital for evaluation of altered mental status. Patient is not a good historian and most of the history of presenting illness was obtained from the EMR. According to the EMR family members brought her in out of concerns that she was hallucinating. Family reports that she is normally very sharp and alert oriented x3. They also report that she sustained a fall a few days ago however has not been worked up. Workup in the hospital included a head CT which was negative. Chest x-ray was negative. Pelvis x-ray was negative for any acute osseous abnormality, fixation of the right femoral neck and upper femur. Cervical spine CT was negative for any acute osseous abnormality. 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 Brain MRI was obtained and was negative, showed normal aging brain. Initial labs showed a white blood cell count of 11.3, sodium 128, chloride 93, blood sugar 104-132, AST 93, ALT 42. UA was obtained and showed cloudy urine appearance, trace ketones, 1+ leukocyte, 6-10 urine WBC, 4+ urine bacteria. Urine drug screen was negative. Urine culture was obtained and is pending. EKG showing normal sinus rhythm with a rate of 74, QTC 451. Patient was started on Rocephin and IV fluids while in the ED. Urine culture showing E coli on final read. Patient was transitioned to Macrobid and is tolerating well. We did check a TSH which was 9.610, free T4 1.12, free T3 3.0. Patient does report that she took Synthroid a long time ago however she had a reaction to the medication and it was stopped. They tried giving her synthroid at a later time and still had same reaction. She will need to follow up with her primary care physician regarding these readings and will require a lab draw and 2-3 months to recheck if primary feels it is necessary. Altered mental status was due to her acute UTI. Final diagnosis: Acute UTI, hypothyroidism, severe protein calorie malnutrition Status at Discharge Cognitive/behavioral status at discharge: Alert and oriented x3 Functional status at discharge: uses cane/walker Overall status at discharge: patient is progressing back to baseline Time Spent with Patient Time attestation: Total time spent pro
== END 2024-05-23 12:47 | DRG 689 ==
LOC: ANHED 05-19 02:42 → ANH3MED 05-19 03:26
PROVIDERS: Physician Assistant; Admitting Provider Internal Medicine; Emergency Provider Emergency Medicine; Visit Provider Nurse Practitioner Acute Care
DX: N39.0 Urinary tract infection, site not specified (principal); E43 Unspecified severe protein-calorie malnutrition; E87.1 Hypo-osmolality and hyponatremia; Z68.1 Body mass index [BMI] 19.9 or less, adult; B96.20 Unspecified Escherichia coli [E. coli] as the cause of diseases classified elsewhere; E03.9 Hypothyroidism, unspecified; R74.01 Elevation of levels of liver transaminase levels; E78.5 Hyperlipidemia, unspecified; E11.9 Type 2 diabetes mellitus without complications; N31.9 Neuromuscular dysfunction of bladder, unspecified
CPT/HCPCS: 36415; 70450; 70553; 71046; 72125; 72128; 72131; 72170; 80053; 80307; 81001; 82948; 83036; 83930; 83935; 84300; 84439; 84443; 84480; 85025; 85610; 85730; 87077; 87086; 87088; 87186; 93005; 96365; 96366; 97110; 97116; 97161; 97165; 97530; 97535; 99285; A9270; A9577; G0378; J0696; J1815; J7030